=== PATIENT | female | born 1955 | race Hispanic/Latino ===

== ENCOUNTER 2017-11-10 21:38 | Inpatient (IN) | payer OTHER ==
[~2017-11-10 21:38] MED LIST: LOVENOX SUB-Q SCH
--- NOTE | 2017-11-10 22:10 | Emergency Department Report ---
ED General Adult HPI - General Chief complaint: Arrhythmia/Palpitations Stated complaint: CHEST PAIN Time Seen by Provider: 11/10/17 22:08 Source: patient, RN notes reviewed Mode of arrival: Ambulatory Limitations: No Limitations - History of Present Illness Initial comments: This is a 62-year-old female who is unknown to this provider, she can't recall the name of her primary care doctor, and endorses a past medical history of hypertension and high cholesterol. She comes to the ER with a complaint of fatigue, tightness palpitations and malaise. Her symptoms have been constant, they do not radiate anywhere, and they did not have exacerbating or relieving factors. She denies headache, neck pain, abdominal pain, urinary symptoms, bladder or bowel retention or incontinence, hemoptysis, hematemesis, bright red blood per rectum. No DVT or pulmonary embolus risk factors within the past 2 weeks. Upon arrival to the ER, the patient was found to be in A. fib with RVR. She was given 20 mg of diltiazem, which temporarily slowed her down, and then she had a rate increase. She was then given 30 mg of diltiazem IV, which slowed her heart rate down to the 90s, still in A. fib. She denies cocaine use. -: Gradual Quality: other (as per history of present illness) Consistency: constant Improves with: none Worsens with: none Associated Symptoms: loss of appetite, malaise, weakness. denies: confusion, chest pain, cough, diaphoresis, fever/chills, headaches, nausea/vomiting, rash, seizure, shortness of breath, syncope - Related Data Allergies Allergy/AdvReac Type Severity Reaction Status Date / Time Sulfa (Sulfonamide Allergy Anaphylaxis Verified 11/10/17 21:57 Antibiotics) ED Review of Systems ROS: Stated complaint: CHEST PAIN Other details as noted in HPI Constitutional: malaise. denies: fever Eyes: denies: vision change ENT: denies: epistaxis Respiratory: shortness of breath Cardiovascular: palpitations Gastrointestinal: denies: abdominal pain Genitourinary: denies: dysuria Musculoskeletal: denies: arthralgia Skin: denies: lesions Neurological: weakness Psychiatric: anxiety ED Past Medical Hx - Past Medical History Hx Hypertension: Yes Additional medical history: hyperlipidemia - Surgical History Hx Appendectomy: Yes - Social History Smoking Status: Never Smoker Substance Use Type: None ED Physical Exam - General Limitations: No Limitations General appearance: alert, anxious, in distress - Head Head exam: Present: atraumatic, normocephalic - Eye Eye exam: Present: normal appearance, EOMI. Absent: nystagmus - ENT ENT exam: Present: normal exam, normal orophraynx, mucous membranes moist, normal external ear exam - Neck Neck exam: Present: normal inspection, full ROM - Respiratory Respiratory exam: Present: normal lung sounds bilaterally. Absent: respiratory distress - Cardiovascular Cardiovascular Exam: Present: tachycardia, irregular rhythm, normal heart sounds. Absent: systolic murmur, diastolic murmur, rubs, gallop - GI/Abdominal GI/Abdominal exam: Present: soft, normal bowel sounds. Absent: distended, tenderness, guarding, rebound, rigid, pulsatile mass - Extremities Exam Extremities exam: Present: normal inspection, full ROM, normal capillary refill. Absent: tenderness, pedal edema, joint swelling, calf tenderness - Back Exam Back exam: Present: normal inspection, full ROM. Absent: tenderness, CVA tenderness (R), paraspinal tenderness, vertebral tenderness - Neurological Exam Neurological exam: Present: alert, oriented X3, CN II-XII intact, other ( Extraocular movements intact. Tongue midline. No facial droop. Facial sensation intact to light touch in the V1, V2, V3 distribution bilaterally. 5 and 5 strength in 4 extremities.. Sensation is intact to light touch in 4 extremities.). Absent: motor sensory deficit - Psychiatric Psychiatric exam: Present: anxious - Skin Skin exam: Present: warm, dry, intact, normal color. Absent: rash ED Course Vital Signs 11/10/17 11/10/17 11/10/17 21:49 21:57 22:02 Temperature 98.1 F 98.1 F Pulse Rate 156 H 156 H Respiratory 18 20 16 Rate Blood Pressure 201/116 Blood Pressure 201/116 [Right] O2 Sat by Pulse 99 99 100 Oximetry 11/10/17 11/10/17 11/10/17 22:09 22:16 22:31 Temperature Pulse Rate 144 H 148 H 98 H Respiratory 12 9 L 14 Rate Blood Pressure 148/118 148/118 134/74 Blood Pressure [Right] O2 Sat by Pulse 98 100 100 Oximetry 11/10/17 11/10/17 11/10/17 22:45 23:00 23:03 Temperature Pulse Rate 82 56 L 144 H Respiratory 16 18 Rate Blood Pressure 134/74 132/75 168/116 Blood Pressure [Right] O2 Sat by Pulse 99 99 Oximetry 11/10/17 11/11/17 23:15 00:37 Temperature Pulse Rate 65 50 L Respiratory 12 Rate Blood Pressure 132/75 123/64 Blood Pressure [Right] O2 Sat by Pulse 98 Oximetry - Reevaluation(s) Reevaluation #1: 11/10/17 23:22 Heart rate in the 80s. Still in A. fib. Hemodynamically stable. Hospitalist paged. [facility] pending CMP results. Reevaluation #2: 11/10/17 23:24 Hospital physician, Dr. Bui, accepts the patient to the medical service. Reevaluation #3: 11/11/17 00:42 Patient feeling improved. Has converted back to sinus. In sinus bradycardia. EKG #3 shows sinus bradycardia, no evidence of STEMI. Hospital physician is informed. - Consultations Consultation #1: 11/10/17 23:28 Case is discussed with cardiology, Dr. Denise Cook, he agrees with management plan , and his group will see the patient in the morning in consultation. ED Medical Decision Making - Lab Data Result diagrams: 11/10/17 22:19 11/10/17 22:19 Vital Signs 11/10/17 11/10/17 21:49 21:57 Temperature 98.1 F 98.1 F Pulse Rate 156 H 156 H Respiratory 18 20 Rate Blood Pressure 201/116 Blood Pressure 201/116 [Right] O2 Sat by Pulse 99 99 Oximetry - EKG Data -: EKG Interpreted by Me - EKG Data When compared to previous EKG there are: previous EKG unavailable 11/10/17 22:39 Atrial fibrillation, rapid ventricular response, normal axis, QTC within normal limits, incomplete right bundle branch block, not a STEMI. Normal intervals. - Radiology Data Radiology results: pending, report reviewed, image reviewed interpreted by me: X-ray of the chest, interpreted by me, no acute disease. - Medical Decision Making Differential diagnosis, including but not limited to: Structural cardiac disease , A. fib with RVR, thyroid abnormality, pneumonia, urinary tract infection, electrolyte derangement, acute coronary syndrome Assessment and plan: 62-year-old female who presents with A. fib with RVR. She is appropriately rate controlled at this moment. She has no chest pain at this time. She is hemodynamically stable at this time. She has no contraindications or systemic anticoagulation. She does not have a primary driver messenger that she follows with. We will check basic laboratory studies, urinalysis, x-ray of the chest, await for appropriate laboratory studies, and then admit for further evaluation and management. Critical Care Time: Yes Critical care time in (mins) excluding proc time.: 35 Critical care attestation.: If time is entered above; I have spent that time in minutes in the direct care of this critically ill patient, excluding procedure time. ED Disposition Clinical Impression: Atrial fibrillation with RVR Disposition: DC-09 OP ADMIT IP TO THIS HOSP Is pt being admited?: Yes Condition: Good
[2017-11-10] MEDS ORDERED: CARDIZEM ONE (22:25)
[2017-11-10 22:34] LABS: Basophils % (Auto) 0.7 % (0.0-1.8); Eosinophils # (Auto) 0.1 K/mm3 (0.0-0.4); Hematocrit 41.3 % (30.3-42.9); Hemoglobin 14.2 gm/dl (10.1-14.3); Lymphocytes # (Auto) 2.6 K/mm3 (1.2-5.4); Mean Corpuscular HGB Conc 35 % (30-34); Mean Corpuscular Hemoglobin 30 pg (28-32); Mean Corpuscular Volume 86 fl (79-97); Monocytes # (Auto) 0.6 K/mm3 (0.0-0.8); Monocytes % (Auto) 8.4 % (0.0-7.3); Platelet Count 304 K/mm3 (140-440); Red Blood Count 4.79 M/mm3 (3.65-5.03); Red Cell Distribution Width 12.9 % (13.2-15.2)
[2017-11-10] MEDS ORDERED: CARDIZEM IV ONE (22:36)
[2017-11-10] MEDS ORDERED: CARDIZEM PO ONE (22:36)
[2017-11-10 22:43] LABS: INR 0.76 (0.87-1.13)
[2017-11-10 22:44] LABS: Partial Thromboplastin Time 27.3 Sec. (24.2-36.6)
--- NOTE | 2017-11-10 22:51 | XRay Report ---
FINAL REPORT PROCEDURE: XR CHEST 1V AP TECHNIQUE: Chest radiograph anteroposterior view. CPT 82326 HISTORY: Dyspnea. Atrial fibrillation. COMPARISON: No prior studies are available for comparison. FINDINGS: Heart: Normal. Mediastinum/Vessels: Normal. Lungs/Pleural space: Normal. Bony thorax: Mild degenerative changes of the spine. Life support devices: None. IMPRESSION: No radiographic evidence of acute cardiopulmonary disease.
[2017-11-10 23:32] LABS: Bilirubin,Urine NEG (Negative); Blood,Urine NEG (Negative); Color,Urine Straw (Yellow); Mucus,Urine FEW /HPF; Protein,Urine <15 mg/dL mg/dL (Negative); Urobilinogen,Urine < 2.0 mg/dL (<2.0)
[2017-11-10] MEDS ORDERED: LOVENOX SUB-Q ONE (23:37)
[2017-11-10] MEDS ORDERED: NACL 0.9% 1000 ML 1,000 ML IV SCH (23:45)
[2017-11-10] MEDS ORDERED: ZOFRAN IV PRN (23:59)
[2017-11-10] MEDS ORDERED: TYLENOL PO PRN (23:59)
[2017-11-10] MEDS ORDERED: SODIUM CHLORIDE FLUSH SYRINGE 10 ML IV PRN (23:59)
[2017-11-11 00:08] LABS: Alanine Aminotransferase 23 units/L (7-56); Albumin 4.3 g/dL (3.9-5); BUN/Creatinine Ratio 26; Blood Urea Nitrogen 13 mg/dL (7-17); Calcium 9.7 mg/dL (8.4-10.2); Hemolysis Index 11
--- NOTE | 2017-11-11 00:12 | History and Physical Report ---
History of Present Illness Date of examination: 11/11/17 Chief complaint: Fatigue weakness and palpitations History of present illness: 62-year-old white female with history of hypertension and hyperlipidemia was lying down at home when she started feeling weak and fatigued and started having palpitations. She states her heart rate was in the 150s. And her blood pressure was in the 130s systolic at home. She denies any chest pain or shortness of breath. She denies any loss of consciousness. Denies fever or chills. He was noted to be in atrial fibrillation with RVR, the heart rate improved after administration of IV diltiazem. However she was still in A. fib. She is being admitted for further management of the new onset atrial fibrillation Past History Past Medical History: hypertension, hyperlipidemia. denies: CAD, COPD, GERD, hyperthyroidism Past Surgical History: appendectomy Social history: no significant social history. denies: smoking, alcohol abuse Family history: CAD, diabetes, hypertension Medications and Allergies Allergies Allergy/AdvReac Type Severity Reaction Status Date / Time Sulfa (Sulfonamide Allergy Anaphylaxis Verified 11/10/17 21:57 Antibiotics) Active Meds: Active Medications Acetaminophen (Tylenol) 650 mg PO Q4H PRN PRN Reason: Pain MILD(1-3)/Fever >100.5/[place] Atorvastatin Calcium (Lipitor) 40 mg PO QHS [facility] Enoxaparin Sodium (Lovenox) 70 mg SUB-Q Q12H [facility] Sodium Chloride (Nacl 0.9% 1000 Ml) 1,000 mls @ 42 mls/hr IV DIRECT REBEL Metoprolol Tartrate (Lopressor) 25 mg PO DAILY [facility] Ondansetron HCl (Zofran) 4 mg IV Q8H PRN PRN Reason: Nausea And Vomiting Sodium Chloride (Sodium Chloride Flush Syringe 10 Ml) 10 ml IV BID REBEL Sodium Chloride (Sodium Chloride Flush Syringe 10 Ml) 10 ml IV PRN PRN PRN Reason: LINE FLUSH Review of Systems Constitutional: fatigue, weakness, no weight loss, no fever, no chills Ears, nose, mouth and throat: no ear pain, no ear discharge, no nasal congestion , no sore throat, no headache, no vertigo Cardiovascular: palpitations, rapid/irregular heart beat, lightheadedness, high blood pressure, no chest pain, no orthopnea, no edema, no syncope, no shortness of breath Respiratory: no cough, no shortness of breath Gastrointestinal: no abdominal pain, no nausea, no vomiting, no constipation, no melena Genitourinary Female: no urinary frequency, no stress incontinence, no urge incontinence Rectal: no pain Musculoskeletal: no low back pain Integumentary: no rash Neurological: no head injury, no seizures, no syncope Psychiatric: no anxiety, no depression Exam - Constitutional Vitals: Temp Pulse Resp BP Pulse Ox 98.1 F 65 12 132/75 98 11/10/17 21:57 11/10/17 23:15 11/10/17 23:15 11/10/17 23:15 11/10/17 23:15 General appearance: Present: no acute distress, well-nourished - EENT Eyes: Present: PERRL, EOM intact ENT: hearing intact, clear oral mucosa - Neck Neck: Present: supple, normal ROM. Absent: masses or JVD - Respiratory Respiratory effort: normal Respiratory: bilateral: CTA - Cardiovascular Rhythm: irregularly irregular Heart Sounds: Present: S1 & S2 - Extremities Extremities: No edema - Abdominal General gastrointestinal: Present: soft. Absent: non-tender, hepatomegaly, splenomegaly - Rectal Rectal Exam: deferred - Integumentary Integumentary: Present: clear - Musculoskeletal Musculoskeletal: strength equal bilaterally - Psychiatric Psychiatric: appropriate mood/affect - Neurologic Neurologic: no focal deficits, moves all extremities Results - Labs CBC & Chem 7: 11/10/17 22:19 Labs: Abnormal lab results 11/10/17 11/10/17 11/10/17 Range/Units 22:19 22:19 22:56 MCHC 35 H (30-34) % RDW 12.9 L (13.2-15.2) % [place] % (Auto) 8.4 H (0.0-7.3) % PT 11.0 L (12.2-14.9) Sec. INR 0.76 L (0.87-1.13) Ur Specific [place] 1.002 L (1.003-1.030) Assessment and Plan - Patient Problems (1) Atrial fibrillation with RVR Current Visit: Yes Status: Acute Plan to address problem: Patient's heart rate improved with IV diltiazem push Heart heart rate is now in the high 50s EKG was ordered Repeat EKG after the heart rate went down to low 80s showed the heart still in atrial fibrillation Check echocardiogram to assess LV function Cardiology consult Lovenox 1 mg/kg body weight every 12 hours until seen by c2 tactical analysis technician (2) Hypertension Current Visit: Yes Status: Chronic Qualifiers: Hypertension type: essential hypertension Qualified Code(s): I10 - Essential (primary) hypertension Plan to address problem: Patient apparently takes bystolic 5 mg at home We will start the patient on metoprolol for now pending cardiology evaluation (3) Hyperlipidemia Current Visit: Yes Status: Chronic Qualifiers: Hyperlipidemia type: mixed hyperlipidemia Qualified Code(s): E78.2 - Mixed hyperlipidemia Plan to address problem: Continue Lipitor 40 mg which she takes at home
[2017-11-11] MEDS ORDERED: LOVENOX SUB-Q SCH (10:00)
[2017-11-11] MEDS ORDERED: LOPRESSOR PO SCH (10:00)
--- NOTE | 2017-11-11 10:48 | Progress Note ---
Assessment and Plan Assessment and plan: Ms. Lawrence is a 62 yo woman with hypertension, dyslipidemia who pw palpitations. She was admitted for afib with RVR. * pCXR no acute findings * -AFib/AFlutter with RVR: Consulted Cardiology, ECHO, a/c -Hypertension: monitor closely while bradycardic, use lisinopril, hold home bystolic also -Dysplipidemia: treat statin -Bradycardia meds induced most likely: hold bblocker and cardizem, Cardiology to evaluate -DVT prophylaxis: a/c stop bblocker, cardizem because heart drops into 30s briefly but rebounds to low 50s lengthy discussion with patient and daughters at bedside. she would like to take the Newer anticoagulant instead of warfarin. So, start Eliquis. Monitor telemetry closely CCT 33 minutes History Interval history: Patient was seen and examined. Follow-up on current diagnosis of palpitation. Overnight uneventful. Patient denies any chest pain, shortness breath, nausea/ vomiting or severe headaches. Imaging, nursing note, chart, labs and old chart reviewed. Discussed with patient. Hospitalist Physical - Physical exam Narrative exam: GEN: WDWN, NAD, Awake, Alert, Orientated x 3 HEENT: NCAT, EOMI, PERRL, OP Clear NECK: supple, no adenopathy, no thyromegaly, no JVD CVS/HEART: irregular irregular, normal S1S2, pulses present bilaterally CHEST/LUNGS: CTA B, Symmetrical chest expansion, good air entry bilaterally GI/Abdomen: soft, NTND, good bowel sounds, no guarding or rebound /Bladder: no suprapubic tenderness, no CVA or paraspinal tenderness EXT/Skin: no c/c/e, no obvious rash MSK: FROM x 4 Neuro: CN 2-12 grossly intact, no new focal deficits Psych: calm - Constitutional Vitals: Temp Pulse Resp BP Pulse Ox 97.6 F 48 L 17 97/56 97 11/11/17 08:01 11/11/17 10:11 11/11/17 09:37 11/11/17 10:11 11/11/17 08:01 General appearance: Present: no acute distress, well-nourished Results - Labs CBC & Chem 7: 11/10/17 22:19 11/10/17 22:19 Labs: Laboratory Last Values WBC 7.4 K/mm3 (4.5-11.0) 11/10/17 22:19 RBC 4.79 M/mm3 (3.65-5.03) 11/10/17 22:19 Hgb 14.2 gm/dl (10.1-14.3) 11/10/17 22:19 Hct 41.3 % (30.3-42.9) 11/10/17 22:19 MCV 86 fl (79-97) 11/10/17 22:19 MCH 30 pg (28-32) 11/10/17 22:19 MCHC 35 % (30-34) H 11/10/17 22:19 RDW 12.9 % (13.2-15.2) L 11/10/17 22:19 Plt Count 304 K/mm3 (140-440) 11/10/17 22:19 Lymph % (Auto) 35.0 % (13.4-35.0) 11/10/17 22:19 [place] % (Auto) 8.4 % (0.0-7.3) H 11/10/17 22:19 Eos % (Auto) 2.0 % (0.0-4.3) 11/10/17 22:19 Baso % (Auto) 0.7 % (0.0-1.8) 11/10/17 22:19 Lymph # 2.6 K/mm3 (1.2-5.4) 11/10/17 22:19 [place] # 0.6 K/mm3 (0.0-0.8) 11/10/17 22:19 Eos # 0.1 K/mm3 (0.0-0.4) 11/10/17 22:19 Baso # 0.0 K/mm3 (0.0-0.1) 11/10/17 22:19 Seg Neutrophils % 53.9 % (40.0-70.0) 11/10/17 22:19 Seg Neutrophils # 4.0 K/mm3 (1.8-7.7) 11/10/17 22:19 PT 11.0 Sec. (12.2-14.9) L 11/10/17 22:19 INR 0.76 (0.87-1.13) L 11/10/17 22:19 APTT 27.3 Sec. (24.2-36.6) 11/10/17 22:19 Sodium 140 mmol/L (137-145) 11/10/17 22:19 Potassium 3.7 mmol/L (3.6-5.0) 11/10/17 22:19 Chloride 103.2 mmol/L (98-107) 11/10/17 22:19 Carbon Dioxide 20 mmol/L (22-30) L 11/10/17 22:19 Anion Gap 21 mmol/L 11/10/17 22:19 BUN 13 mg/dL (7-17) 11/10/17 22:19 Creatinine 0.5 mg/dL (0.7-1.2) L 11/10/17 22:19 Estimated GFR > 60 ml/min 11/10/17 22:19 BUN/Creatinine Ratio 26 % 11/10/17 22:19 Glucose 159 mg/dL (65-100) H 11/10/17 22:19 Calcium 9.7 mg/dL (8.4-10.2) 11/10/17 22:19 Magnesium 1.90 mg/dL (1.7-2.3) 11/10/17 22:19 Total Bilirubin 0.20 mg/dL (0.1-1.2) 11/10/17 22:19 AST 19 units/L (5-40) 11/10/17 22:19 ALT 23 units/L (7-56) 11/10/17 22:19 Alkaline Phosphatase 84 units/L (35-129) 11/10/17 22:19 Total Creatine Kinase 74 units/L (30-135) 11/10/17 22:19 Troponin T < 0.010 ng/mL (0.00-0.029) 11/10/17 22:19 Total Protein 7.2 g/dL (6.3-8.2) 11/10/17 22:19 Albumin 4.3 g/dL (3.9-5) 11/10/17 22:19 Albumin/Globulin Ratio 1.5 % 11/10/17 22:19 TSH 2.360 mlU/mL (0.270-4.200) 11/10/17 22:19 Free T4 0.96 ng/dL (0.76-1.46) 11/10/17 22:19 Urine Color Straw (Yellow) 11/10/17 22:56 Urine Turbidity Clear (Clear) 11/10/17 22:56 Urine pH 7.0 (5.0-7.0) 11/10/17 22:56 Ur Specific [place] 1.002 (1.003-1.030) L 11/10/17 22:56 Urine Protein <15 mg/dl mg/dL (Negative) 11/10/17 22:56 Urine Glucose (UA) Neg mg/dL (Negative) 11/10/17 22:56 Urine Ketones Neg mg/dL (Negative) 11/10/17 22:56 Urine Blood Neg (Negative) 11/10/17 22:56 Urine Nitrite Neg (Negative) 11/10/17 22:56 Urine Bilirubin Neg (Negative) 11/10/17 22:56 Urine Urobilinogen < 2.0 mg/dL (<2.0) 11/10/17 22:56 Ur Leukocyte Esterase Mod (Negative) 11/10/17 22:56 Urine WBC (Auto) 4.0 /HPF (0.0-6.0) 11/10/17 22:56 Urine RBC (Auto) 1.0 /HPF (0.0-6.0) 11/10/17 22:56 U Epithel Cells (Auto) < 1.0 /HPF (0-13.0) 11/10/17 22:56 Urine Mucus Few /HPF 11/10/17 22:56
[2017-11-11] MEDS: SODIUM CHLORIDE FLUSH SYRINGE 10 ML IV SCH ×2 (11:24→23:47)
--- NOTE | 2017-11-11 14:40 | Consultation ---
History of Present Illness Consult date: 11/11/17 Consult reason: atrial fibrillation History of present illness: 62-year-old white female with history of hypertension and hyperlipidemia was lying down at home when she started feeling weak and fatigued and started having palpitations. She states her heart rate was in the 150s. And her blood pressure was in the 130s systolic at home. Patient states she has had the episodes on multiple occasions thoughout the years. She denies any chest pain or shortness of breath. She denies orthopnea, pnd, palpitations, dizziness or syncope. SHe was noted to be in atrial fibrillation with RVR, the heart rate improved after administration of IV diltiazem. She subsequently converted to sinus rhythm overnight. Past History Past Medical History: hypertension, hyperlipidemia. denies: CAD, COPD, GERD, hyperthyroidism Past Surgical History: appendectomy Social history: no significant social history. denies: smoking, alcohol abuse Family history: CAD, diabetes, hypertension Medications and Allergies Allergies Allergy/AdvReac Type Severity Reaction Status Date / Time Sulfa (Sulfonamide Allergy Anaphylaxis Verified 11/10/17 21:57 Antibiotics) Home Medications Medication Instructions Recorded Confirmed Last Taken Type AtorvaSTATin 40 mg PO HS 11/11/17 11/11/17 Unknown History Bystolic 5 mg PO DAILY 11/11/17 11/11/17 Unknown History Active Meds: Active Medications Acetaminophen (Tylenol) 650 mg PO Q4H PRN PRN Reason: Pain MILD(1-3)/Fever >100.5/[place] Apixaban (Eliquis) 5 mg PO Q12HR REBEL; Protocol Atorvastatin Calcium (Lipitor) 40 mg PO QHS [facility] Sodium Chloride (Nacl 0.9% 1000 Ml) 1,000 mls @ 42 mls/hr IV DIRECT REBEL Ondansetron HCl (Zofran) 4 mg IV Q8H PRN PRN Reason: Nausea And Vomiting Sodium Chloride (Sodium Chloride Flush Syringe 10 Ml) 10 ml IV BID REBEL Last Admin: 11/11/17 11:24 Dose: 10 ml Sodium Chloride (Sodium Chloride Flush Syringe 10 Ml) 10 ml IV PRN PRN PRN Reason: LINE FLUSH Review of Systems All systems: negative Physical Examination Vital Signs Temp Pulse Resp BP Pulse Ox 98.1 F 156 H 18 201/116 99 11/10/17 21:49 11/10/17 21:49 11/10/17 21:49 11/10/17 21:49 11/10/17 21:49 General appearance: no acute distress HEENT: Positive: PERRL, EOMI Cardiac: Positive: Reg Rate and Rhythm, S1/S2 Lungs: Positive: clear to auscultation Neuro: Positive: Cranial Nerve 2-12 Intact Abdomen: Positive: Soft, Active Bowel Sounds Extremities: Absent: edema Results 11/10/17 22:19 11/10/17 22:19 Cardiac Enzymes 11/10/17 Range/Units 22:19 AST 19 (5-40) units/L Coagulation 11/10/17 Range/Units 22:19 PT 11.0 L (12.2-14.9) Sec. INR 0.76 L (0.87-1.13) APTT 27.3 (24.2-36.6) Sec. CBC 11/10/17 Range/Units 22:19 WBC 7.4 (4.5-11.0) K/mm3 RBC 4.79 (3.65-5.03) M/mm3 Hgb 14.2 (10.1-14.3) gm/dl Hct 41.3 (30.3-42.9) % Plt Count 304 (140-440) K/mm3 Lymph # 2.6 (1.2-5.4) K/mm3 [place] # 0.6 (0.0-0.8) K/mm3 Eos # 0.1 (0.0-0.4) K/mm3 Baso # 0.0 (0.0-0.1) K/mm3 Comprehensive Metabolic Panel 11/10/17 Range/Units 22:19 Sodium 140 (137-145) mmol/L Potassium 3.7 (3.6-5.0) mmol/L Chloride 103.2 (98-107) mmol/L Carbon Dioxide 20 L (22-30) mmol/L BUN 13 (7-17) mg/dL Creatinine 0.5 L (0.7-1.2) mg/dL Glucose 159 H (65-100) mg/dL Calcium 9.7 (8.4-10.2) mg/dL AST 19 (5-40) units/L ALT 23 (7-56) units/L Alkaline Phosphatase 84 (35-129) units/L Total Protein 7.2 (6.3-8.2) g/dL Albumin 4.3 (3.9-5) g/dL EKG interpretations - Telemetry EKG Rhythm: Sinus Rhythm Assessment and Plan Atrial fibrillation with RVR Hypertension Hyperlipidemia Check echo Check TSH and FT4 Start diltiazem check nuclear stress test in AM CHADSVASc = 2 (female and HTN) - anticoagulation with DOAC recommended
[2017-11-11] MEDS: CARDIZEM PO SCH (17:53)
[2017-11-11] MEDS: ELIQUIS PO SCH (21:50)
[2017-11-12] MEDS: CARDIZEM PO SCH ×3 (01:02→11:40)
[2017-11-12 06:15] LABS: BUN/Creatinine Ratio 25; Blood Urea Nitrogen 10 mg/dL (7-17); Calcium 8.8 mg/dL (8.4-10.2); Hemolysis Index 12
[2017-11-12] MEDS ORDERED: LEXISCAN IV ONE ×2 (09:30→09:34)
[2017-11-12] MEDS: SODIUM CHLORIDE FLUSH SYRINGE 10 ML IV SCH (10:00)
--- NOTE | 2017-11-12 11:39 | Progress Note ---
Assessment and Plan Pt reports approx. 3 year history of intermittent palpitations - suspect paroxysmal atrial fibrillation. Proceed with treadmill MPI stress test. Await findings. Await echo. Pt with sinus bradycardia noted overnight. Will hold cardizem. Cont Eliquis. The patient has been seen in conjunction with Dr. Cueva who agrees with the assessment and plan of care. - Patient Problems (1) Atrial fibrillation with RVR Current Visit: Yes Status: Acute (2) Hyperlipidemia Current Visit: Yes Status: Chronic Qualifiers: Hyperlipidemia type: mixed hyperlipidemia Qualified Code(s): E78.2 - Mixed hyperlipidemia (3) Hypertension Current Visit: Yes Status: Chronic Qualifiers: Hypertension type: essential hypertension Qualified Code(s): I10 - Essential (primary) hypertension Subjective Date of service: 11/12/17 Principal diagnosis: afib with RVR Interval history: pt seen in stress lab, awaiting stress test. she reports that she was followed in the past by our group and thus has requested for cardiology care to be transferred to our group. no current cardiac complaints. currently in SR with SB noted overnight. Objective Last Vital Signs Temp 97.6 F 11/12/17 04:25 Pulse 50 L 11/12/17 10:21 Resp 17 11/12/17 08:11 BP 133/65 11/12/17 04:24 Pulse Ox 97 11/12/17 04:24 - Physical Examination General: No Apparent Distress HEENT: Positive: PERRL, EOMI Neck: Positive: neck supple, trachea midline Cardiac: Positive: Reg Rate and Rhythm, S1/S2 Lungs: Positive: clear to auscultation Neuro: Positive: Cranial Nerve 2-12 Intact Abdomen: Positive: Soft, Active Bowel Sounds Extremities: Absent: edema - Labs and Meds Comprehensive Metabolic Panel 11/12/17 Range/Units 05:34 Sodium 140 (137-145) mmol/L Potassium 4.1 (3.6-5.0) mmol/L Chloride 103.7 (98-107) mmol/L Carbon Dioxide 23 (22-30) mmol/L BUN 10 (7-17) mg/dL Creatinine 0.4 L (0.7-1.2) mg/dL Glucose 92 (65-100) mg/dL Calcium 8.8 (8.4-10.2) mg/dL - Imaging and Cardiology Echo: pending - Telemetry EKG Rhythm: Sinus Rhythm
[2017-11-12] MEDS: ELIQUIS PO SCH (11:40)
--- NOTE | 2017-11-12 14:23 | Progress Note ---
Assessment and Plan Assessment and plan: Ms. Lawrence is a 62 yo woman with hypertension, dyslipidemia who pw palpitations. She was admitted for afib with RVR. * pCXR no acute findings -AFib/AFlutter with RVR: Consulted Cardiology, ECHO, a/c -Hypertension: monitor closely while bradycardic, use lisinopril, hold home bystolic also -Dysplipidemia: treat statin -Bradycardia meds induced most likely: hold bblocker and cardizem, heart rate is improving -DVT prophylaxis: a/c Lengthy discussion with patient and 2 daughters at bedside. She would like to take the Newer anticoagulant instead of warfarin. So, started Eliquis. Stress test and ECHO still pending. Anticipate discharge tomorrow History Interval history: Patient was seen and examined. Follow-up on current diagnosis of palpitation resolved. Overnight uneventful. Patient denies any chest pain, shortness breath , nausea/vomiting or severe headaches. Imaging, nursing note, chart, labs and old chart reviewed. Discussed with patient. Hospitalist Physical - Physical exam Narrative exam: GEN: WDWN, NAD, Awake, Alert, Orientated x 3 HEENT: NCAT, EOMI, PERRL, OP Clear NECK: supple, no adenopathy, no thyromegaly, no JVD CVS/HEART: irregular irregular, normal S1S2, pulses present bilaterally CHEST/LUNGS: CTA B, Symmetrical chest expansion, good air entry bilaterally GI/Abdomen: soft, NTND, good bowel sounds, no guarding or rebound /Bladder: no suprapubic tenderness, no CVA or paraspinal tenderness EXT/Skin: no c/c/e, no obvious rash MSK: FROM x 4 Neuro: CN 2-12 grossly intact, no new focal deficits Psych: calm - Constitutional Vitals: Temp Pulse Resp BP Pulse Ox 98.3 F 60 17 116/72 96 11/12/17 11:39 11/12/17 11:40 11/12/17 12:45 11/12/17 11:40 11/12/17 11:39 General appearance: Present: no acute distress Results - Labs CBC & Chem 7: 11/10/17 22:19 11/12/17 05:34 Labs: Laboratory Last Values WBC 7.4 K/mm3 (4.5-11.0) 11/10/17 22:19 RBC 4.79 M/mm3 (3.65-5.03) 11/10/17 22:19 Hgb 14.2 gm/dl (10.1-14.3) 11/10/17 22:19 Hct 41.3 % (30.3-42.9) 11/10/17 22:19 MCV 86 fl (79-97) 11/10/17 22:19 MCH 30 pg (28-32) 11/10/17 22:19 MCHC 35 % (30-34) H 11/10/17 22:19 RDW 12.9 % (13.2-15.2) L 11/10/17 22:19 Plt Count 304 K/mm3 (140-440) 11/10/17 22:19 Lymph % (Auto) 35.0 % (13.4-35.0) 11/10/17 22:19 [place] % (Auto) 8.4 % (0.0-7.3) H 11/10/17 22:19 Eos % (Auto) 2.0 % (0.0-4.3) 11/10/17 22:19 Baso % (Auto) 0.7 % (0.0-1.8) 11/10/17 22:19 Lymph # 2.6 K/mm3 (1.2-5.4) 11/10/17 22:19 Simpson # 0.6 K/mm3 (0.0-0.8) 11/10/17 22:19 Eos # 0.1 K/mm3 (0.0-0.4) 11/10/17 22:19 Baso # 0.0 K/mm3 (0.0-0.1) 11/10/17 22:19 Seg Neutrophils % 53.9 % (40.0-70.0) 11/10/17 22:19 Seg Neutrophils # 4.0 K/mm3 (1.8-7.7) 11/10/17 22:19 PT 11.0 Sec. (12.2-14.9) L 11/10/17 22:19 INR 0.76 (0.87-1.13) L 11/10/17 22:19 APTT 27.3 Sec. (24.2-36.6) 11/10/17 22:19 Sodium 140 mmol/L (137-145) 11/12/17 05:34 Potassium 4.1 mmol/L (3.6-5.0) 11/12/17 05:34 Chloride 103.7 mmol/L (98-107) 11/12/17 05:34 Carbon Dioxide 23 mmol/L (22-30) 11/12/17 05:34 Anion Gap 17 mmol/L 11/12/17 05:34 BUN 10 mg/dL (7-17) 11/12/17 05:34 Creatinine 0.4 mg/dL (0.7-1.2) L 11/12/17 05:34 Estimated GFR > 60 ml/min 11/12/17 05:34 BUN/Creatinine Ratio 25 % 11/12/17 05:34 Glucose 92 mg/dL (65-100) 11/12/17 05:34 Calcium 8.8 mg/dL (8.4-10.2) 11/12/17 05:34 Magnesium 1.90 mg/dL (1.7-2.3) 11/10/17 22:19 Total Bilirubin 0.20 mg/dL (0.1-1.2) 11/10/17 22:19 AST 19 units/L (5-40) 11/10/17 22:19 ALT 23 units/L (7-56) 11/10/17 22:19 Alkaline Phosphatase 84 units/L (35-129) 11/10/17 22:19 Total Creatine Kinase 74 units/L (30-135) 11/10/17 22:19 Troponin T < 0.010 ng/mL (0.00-0.029) 11/10/17 22:19 Total Protein 7.2 g/dL (6.3-8.2) 11/10/17 22:19 Albumin 4.3 g/dL (3.9-5) 11/10/17 22:19 Albumin/Globulin Ratio 1.5 % 11/10/17 22:19 TSH 2.360 mlU/mL (0.270-4.200) 11/10/17 22:19 Free T4 0.96 ng/dL (0.76-1.46) 11/10/17 22:19 Urine Color Straw (Yellow) 11/10/17 22:56 Urine Turbidity Clear (Clear) 11/10/17 22:56 Urine pH 7.0 (5.0-7.0) 11/10/17 22:56 Ur Specific [place] 1.002 (1.003-1.030) L 11/10/17 22:56 Urine Protein <15 mg/dl mg/dL (Negative) 11/10/17 22:56 Urine Glucose (UA) Neg mg/dL (Negative) 11/10/17 22:56 Urine Ketones Neg mg/dL (Negative) 11/10/17 22:56 Urine Blood Neg (Negative) 11/10/17 22:56 Urine Nitrite Neg (Negative) 11/10/17 22:56 Urine Bilirubin Neg (Negative) 11/10/17 22:56 Urine Urobilinogen < 2.0 mg/dL (<2.0) 11/10/17 22:56 Ur Leukocyte Esterase Mod (Negative) 11/10/17 22:56 Urine WBC (Auto) 4.0 /HPF (0.0-6.0) 11/10/17 22:56 Urine RBC (Auto) 1.0 /HPF (0.0-6.0) 11/10/17 22:56 U Epithel Cells (Auto) < 1.0 /HPF (0-13.0) 11/10/17 22:56 Urine Mucus Few /HPF 11/10/17 22:56
--- NOTE | 2017-11-12 14:38 | Treadmill Report ---
LEXISCAN STRESS TEST REFERRING PHYSICIAN: Juan Bello MD The patient received 10 mCi of technetium 99m Myoview intravenously under resting conditions. Resting myocardial perfusion scan was done. Subsequently, the patient underwent Lexiscan stress test as per the protocol. During Lexiscan stress, the patient received 28 mCi of technetium 99m Myoview intravenously. After 30-60 minutes, post stress images were done. Computerized reconstruction images were performed for analysis. The post-stress images did not reveal any perfusion abnormality. The gated study did not reveal any wall motion abnormality. Left ventricular ejection fraction was normal and was calculated to be 71%. The resting images were also normal. CONCLUSION: 1. No perfusion abnormality of the left ventricular myocardium was demonstrated in the resting as well as stress images obtained after the patient underwent Lexiscan stress test. 2. No wall motion abnormality. 3. Normal left ventricular ejection fraction of 71%. JOB# [id number] [facility]
[2017-11-12 16:42] VITALS: BP 134/67
--- NOTE | 2017-11-12 16:53 | Discharge Summary ---
Providers - Providers Date of Admission: 11/11/17 00:33 Date of discharge: 11/12/17 Attending physician: TU WEBBER 11/10/17 23:23 Consult to Physician [CONS] Urgent Comment: Consulting Provider: LOGAN RODRIGUEZ Physician Instructions: Reason For Exam: afib with rvr Primary care physician: FARE REGISTER REPAIRER Hospitalization Condition: Good Hospital course: Ms. Lawrence is a 62 yo woman with hypertension, dyslipidemia who pw palpitations. She was admitted for afib with RVR. * pCXR no acute findings -AFib/AFlutter with RVR: Consulted Cardiology, ECHO, a/c -Hypertension: monitor closely while bradycardic, hold antihypertensives, follow up with Cardiology -Dysplipidemia: treat statin -Bradycardia meds induced most likely: hold bblocker and cardizem, heart rate is improving -DVT prophylaxis: a/c I had a Lengthy discussion with patient and 2 daughters at bedside. She would like to take the Newer anticoagulant instead of warfarin. So, started Eliquis. Stress test and ECHO reviewed by Cardiology and they have cleared for discharge today. Disposition: DC-01 TO HOME OR SELFCARE Time spent for discharge: 35 min Core Measure Documentation - Palliative Care Palliative Care/ Comfort Measures: Not Applicable - Core Measures Any of the following diagnoses?: none - VTE Discharge Requirements Deep Vein Thrombosis/Pulmonary Embolism Present on Admission: No Has pt received <5 days of overlap therapy or INR<2.0: No Anticoagulant overlap therapy prescribed at discharge: No Contraindication No Overlap Therapy order at DC: Not Indicated Exam - Physical Exam Narrative exam: GEN: WDWN, NAD, Awake, Alert, Orientated x 3 HEENT: NCAT, EOMI, PERRL, OP Clear NECK: supple, no adenopathy, no thyromegaly, no JVD CVS/HEART: irregular irregular, normal S1S2, pulses present bilaterally CHEST/LUNGS: CTA B, Symmetrical chest expansion, good air entry bilaterally GI/Abdomen: soft, NTND, good bowel sounds, no guarding or rebound /Bladder: no suprapubic tenderness, no CVA or paraspinal tenderness EXT/Skin: no c/c/e, no obvious rash MSK: FROM x 4 Neuro: CN 2-12 grossly intact, no new focal deficits Psych: calm - Constitutional Vitals: Temp Pulse Resp BP Pulse Ox 97.9 F 53 L 18 134/67 94 11/12/17 16:41 11/12/17 16:41 11/12/17 16:41 11/12/17 16:41 11/12/17 16:41 Plan Activity: other (no strenous activity until cleared by Cardiology) Diet: low salt Follow up with: PRIMARY CAREMD [Primary Care Provider] - 3-5 Days LOGAN RODRIGUEZ MD [Staff Physician] - 7 Days Prescriptions: Apixaban [Eliquis] 5 mg PO Q12HR #60 tablet
== END 2017-11-12 17:41 | disposition home or self-care (01) | DRG 310 ==
LOC: ED 21:38 → 4A 11-11 00:33
PROVIDERS: ADMIT Internal Medicine; ATTEND Internal Medicine
DX: I48.91 Unspecified atrial fibrillation (principal); I10 Essential (primary) hypertension; I48.92 Unspecified atrial flutter; R00.1 Bradycardia, unspecified; E78.5 Hyperlipidemia, unspecified; Z90.49 Acquired absence of other specified parts of digestive tract; Z83.3 Family history of diabetes mellitus; Z88.2 Allergy status to sulfonamides; Z82.49 Family history of ischemic heart disease and other diseases of the circulatory system
CPT/HCPCS: 36415; 71045; 78452; 80048; 80053; 81001; 82550; 83735; 84439; 84443; 84484; 85025; 85610; 85730; 93005; 93010; 93017; 93306; A9270-GY; A9502; J1650; J2785